=== PATIENT | male | born 1955 | race Caucasian/White ===

== ENCOUNTER 2018-11-16 12:48 | Day surgery (SDC) | payer MEDICARE, OTHER ==
[~2018-11-16] VITALS: Ht 175.3 cm; Wt 97.2 kg
[2018-11-16 13:24] VITALS: BP 166/91; PULSE 52; TEMP 98.3
[2018-11-16] MEDS ORDERED: PRINIVIL10 MG PO (13:52)
[2018-11-16] MEDS ORDERED: NORVASC 5MG5 MG/TAB PO (13:53)
[2018-11-16] MEDS ORDERED: LIPITOR 40MG TA40 MG PO (13:54)
[2018-11-16] MEDS ORDERED: VOLTAREN 75 DR75 MG PO (13:55)
[2018-11-16] MEDS ORDERED: NITROSTAT0.4 MG/TAB SL (13:56)
[2018-11-16] MEDS ORDERED: GLUCOSAMINE SU500 M2 PO (13:56)
[2018-11-16 14:35] VITALS: BP 176/97; PULSE 56; TEMP 97.8
--- NOTE | 2018-11-16 14:35 | NUR ---
The patient is wheeled to [facility] via cart by Meron ALMEIDA. The patient ambulates to the chair with a steady gait and nurse standby assist. The patient's vital signs are stable. Report is obtained. The patient requests coffee and jello which is brought to him at this time. The call light is within reach and the patient's brother is at the bedside. Will continue to monitor.
[2018-11-16 14:50] VITALS: BP 157/86; PULSE 59
--- NOTE | 2018-11-16 14:50 | NUR ---
The patient's vital signs are stable. The patient tolerated the coffee and is eating the jello at this time. The patient has talked to Dr. Bunch. The call light is within reach and the patient's brother is at the bedside. Will continue to monitor.
[2018-11-16 15:05] VITALS: BP 159/80; PULSE 55
--- NOTE | 2018-11-16 15:05 | NUR ---
The patient's vital signs are stable. The patient is ready to be discharged. The discharge instructions will be reviewed with the patient.
--- NOTE | 2018-11-16 15:10 | NUR ---
The discharge instructions are reviewed with the patient and his brother and all questions are answered. The IV is removed and the tip is intact and a dressing is applied. The patient changes into his personal clothes to be discharged home.
--- NOTE | 2018-11-16 15:16 | NUR ---
The patient is wheeled to the patient entrance via wheelchair to be discharged home via personal vehicle by his brother. The patient is sent home with discharge instructions and education packet.
== END 2018-11-16 15:16 | disposition home or self-care (01) ==
LOC: SDCO 12:48
DX: Z12.11 Encounter for screening for malignant neoplasm of colon (principal); Z93.3 Colostomy status; K63.89 Other specified diseases of intestine; K57.30 Diverticulosis of large intestine without perforation or abscess without bleeding; K64.8 Other hemorrhoids; I10 Essential (primary) hypertension; I25.10 Atherosclerotic heart disease of native coronary artery without angina pectoris; Z79.899 Other long term (current) drug therapy; Z95.1 Presence of aortocoronary bypass graft
CPT/HCPCS: J2250; J3010; J7030